=== PATIENT | male | born 2000 | race Hispanic/Latino ===

== ENCOUNTER 2021-11-05 13:06 | Emergency (ER) | payer SELFPAY ==
[~2021-11-05] VITALS: Ht 180.3 cm; Wt 154.2 kg
[2021-11-05 14:32] LABS: HEMATOCRIT 44.4 % (42-54); MEAN CORPUSCULAR HEMOGLOBIN 28.2 pg (27.0-33.0); MEAN CORPUSCULAR HGB CONC 33.8 g/dL (32.0-36.0); MEAN CORPUSCULAR VOLUME 83.5 fL (79-99); PLATELET COUNT (AUTO) 168 K/uL (130-400); RED BLOOD CELL COUNT(AUTO) 5.32 MIL/uL (4.50-6.20); RED CELL DISTRIBUTION WIDTH 13.5 % (11.0-15.5)
[2021-11-05 14:43] LABS: CREATININE 0.8 mg/dL (0.5-1.5)
[2021-11-05 14:50] LABS: BAND NEUTROPHILS % (MANUAL) 5 % (0-2); LYMPHOCYTES % (MANUAL) 22 % (22-44); MAN.DIFF COMMENT-IMPRESSION MANUAL DIFFERENTIAL; MONOCYTES % (MANUAL) 5 % (2-9); SEGMENTED NEUTROPHILS % 68 % (40-70)
[2021-11-05 14:51] LABS: PLATELET MORPHOLOGY COMMENT LARGE PLTS PRESENT
[2021-11-05] MEDS ORDERED: SULF1TAB42 PO (15:16)
[2021-11-05 15:59] VITALS: BP 141/60
== END 2021-11-05 16:00 | disposition home or self-care (01) ==
LOC: EDH 13:06
DX: L03.114 Cellulitis of left upper limb (principal); R07.89 Other chest pain
CPT/HCPCS: 36415; 71045; 80048; 84484; 85025; 93005

== ENCOUNTER 2024-08-24 21:36 | Emergency (ER) | payer BC ==
[~2024-08-24] VITALS: Ht 180.3 cm; Wt 163.3 kg
[~2024-08-24 21:36] MED LIST: SULF1TAB42 PO
[2024-08-24 22:42] LABS: BASOPHILS # (AUTO) 0.02 K/uL (0.00-0.20); BASOPHILS % (AUTO) 0.2 % (0.0-5.0); EOSINOPHILS # (AUTO) 0.46 K/uL (0.00-0.70); EOSINOPHILS % (AUTO) 5.3 % (0.0-8.0); HEMATOCRIT 44.4 % (42-54); IMMATURE GRANULOCYTE ABSOLUTE 0.03 K/uL (0-1); LYMPHOCYTES # (AUTO) 2.5 K/uL (1.0-4.8); LYMPHOCYTES % (AUTO) 28.6 % (21.0-51.0); MEAN CORPUSCULAR HEMOGLOBIN 28.4 pg (27.0-33.0); MEAN CORPUSCULAR VOLUME 83.5 fL (79-99); MONOCYTES # (AUTO) 0.5 K/uL (0.1-1.0); MONOCYTES % (AUTO) 6.1 % (3.0-13.0); NEUTROPHILS # (AUTO) 5.1 K/uL (1.8-7.7); NEUTROPHILS % (AUTO) 59.5 % (40.0-77.0); PLATELET COUNT (AUTO) 217 K/uL (130-400); RED BLOOD CELL COUNT(AUTO) 5.32 MIL/uL (4.50-6.20); WHITE BLOOD COUNT (AUTO) 8.7 K/uL (4.8-10.8)
[2024-08-24 22:56] LABS: CREATININE 1.1 mg/dL (0.5-1.3); POTASSIUM 4.1 mmol/L (3.5-5.1)
[2024-08-24] MEDS ORDERED: CLIN-141 PO (23:25)
[2024-08-24] MEDS: CLINDAMYCIN 150 MG CAP PO ONE (23:43)
[2024-08-24 23:47] VITALS: BP 140/86; PULSE 82; RESP 18; TEMP 98.2; O2SAT 99
== END 2024-08-24 23:53 | disposition home or self-care (01) ==
LOC: EDH 21:36
DX: L08.82 Omphalitis not of newborn (principal)
CPT/HCPCS: 36415; 76705; 80048; 85025; 87070; 87076